=== PATIENT | female | born 1925 | race Caucasian/White ===

== ENCOUNTER → 2016-06-27 | Outpatient (CLI) | payer MEDICARE ==
[~2016-06-27] MED LIST: ASPIRIN PO; ATIVAN0.5 MG PO; BLEPH-105 M1 OP; BONIVA2.5 MG; CALCIUM 500 + D1 TAB PO; CERTAGEN PO; COLESTID PO; COZAAR PO; FORTEO750 MCG/3 INJ; FORTEO750 MCG/3 SUBQ; KLOR-CON PO; LASIX PO; LORTAB 5/500 TA1 TA1 PO; NORVASC PO; SYNTHROID PO; TOPROL XL PO
--- NOTE | ~2016-06-27 | MY11 ---
[facility] A Service of [facility] [place] RADIOLOGY TEXT RESULTS PATIENT: MAVIS OSBORNE LOCATION: [facility] : [birth year] UNIT #: [id number] AGE: [address]: Dav Dave MD SEX: F ORDER DR: [id number] [facility] [address] [place], [place] [address] [id number] O MR#: [id number] Acc #: [id number] NAME: MAVIS OSBORNE : 1925 SEX: F STUDY DATE/TIME: 06/27/2016 14:41 UNIT: [facility] ROOM: STUDY DESCRIPTION: MY Mammogram Screening [facility] [place] Attending Physician: Dav Dave M.D. Referring Physician: Dav Dave M.D. Ordering Physician: Dav Dave M.D. Primary Care Physician: Dav Dave M.D. MEDICAL IMAGING REPORT This report is preliminary unless electronic signature is present EXAM Bilateral digital screening mammogram with CAD device, 06/27/2016. HISTORY Routine screening. FINDINGS Digital imaging of each breast was completed utilizing a two-view examination of each breast in craniocaudal and mediolateral-oblique projections. Review and interpretation of digital mammograms include a second review in conjunction with FDA-approved CAD device. There is a normal parenchymal presentation bilaterally consistent with the patient's age. There are no breast masses imaged and no parenchymal asymmetry is visualized. There are no suspicious microcalcifications and I see no focal architectural disturbance. IMPRESSION Negative screening digital mammogram. One-year followup recommended. Patients over the age of 40 are entered into a reminder system with target due date for the next mammogram. A result letter will also be sent to the patient. BIRADS: 1 Negative Dictated by... Eron Servin M.D. THIS IS AN ELECTRONICALLY VERIFIED REPORT Eron Servin M.D. at 06/28/2016 8:30 AM [facility] A [facility] RADIOLOGY TEXT RESULTS PATIENT: MAVIS OSBORNE LOCATION: [facility] : [birth year] UNIT #: [id number] AGE: [address]: Dav Dave MD SEX: F ORDER DR: Aidee TD: 06/27/2016 17:15 JOB #: [id number] MEDICAL IMAGING REPORT Page 1 of 1 COPY
== END | disposition home or self-care (01) ==
LOC: CWCC 14:18
DX: Z12.31 Encounter for screening mammogram for malignant neoplasm of breast (principal)
CPT/HCPCS: G0202